=== PATIENT | male | born 1955 | race Caucasian/White ===

== ENCOUNTER 2016-09-29 10:29 | Day surgery (SDC) | payer OTHER, MEDICARE ==
[2016-09-28 10:52] VITALS: BMI 26.6
[2016-09-29] MEDS ORDERED: ROCURONIUM BROMIDE 50 MG/5 ML VIAL ONE (14:18)
[2016-09-29] MEDS ORDERED: ceFAZolin SODIUM 1 GM VIAL ONE (15:30)
[2016-09-29] MEDS ORDERED: ceFAZolin SODIUM 1 GM VIAL IVPB ONE (15:32)
[2016-09-29] MEDS ORDERED: NEOSTIGMINE METHYLSULFATE 0.5 MG/ML - 10 ML MDV ONE (16:11)
[2016-09-29] MEDS ORDERED: GLYCOPYRROLATE 0.2 MG/1 ML VIAL ONE (16:12)
[2016-09-29] MEDS ORDERED: BUPIVACAINE HCL/PF 0.5% (5MG/ML) 10 ML VIAL IJ ONE (16:18)
--- NOTE | 2016-09-29 16:41 | OP ---
Operative Note - Note: Operative Date: 09/29/16 Pre-Operative Diagnosis: Renal failure Operation: Laparoscopy, placement of peritoneal dialysis catheter, omentopexy Findings: Thick omentum in pelvis, no significant adhesions. Implants: [place] neck curled tenckhoff catheter Post-Operative Diagnosis: Same as Pre-op Surgeon: Jerad Casanova Chef'S Assistant: Sally Richardson Anesthesiologist/SENIOR SQL DBA: Lety August Anesthesia: General Operative Report Dictated: Yes
[2016-09-29] MEDS ORDERED: ACETAMINOPHEN 325 MG TABLET (FP) PO PRN (16:54)
[2016-09-29] MEDS ORDERED: oxyCODONE HCL 5 MG TABLET PO PRN (16:54)
--- NOTE | 2016-09-29 16:57 | HP ---
Satellite H - Chief Complaint History of Present Illness: 61 year old male with renal failure planning to start peritoneal dialysis. History Source: Patient Limitations to Obtaining History: No Limitations - Past Medical History Allergies/Adverse Reactions: Allergies Allergy/AdvReac Type Severity Reaction Status Date / Time No Known Allergies Allergy Verified 09/29/16 11:10 Cardiovascular: Yes: HTN - Current Medications Current Medications: Home Medications Medication Instructions Recorded Aspirin [ASA -] 81 mg PO DAILY 09/28/16 Calcitriol [Rocaltrol -] 0.25 mcg PO DAILY 09/28/16 Calcium Acetate 667 mg PO TID 09/28/16 Ergocalciferol (Vitamin D2) 1,000 unit PO DAILY 09/28/16 [Vitamin D2] Hydroxyzine HCl [Atarax -] 25 mg PO TID PRN 09/28/16 Losartan Potassium 100 mg PO DAILY 09/28/16 Metoprolol Tartrate [Lopressor] 100 mg PO HS 09/29/16 Satellite Physical Exam - Physical Examination Vital Signs: Vital Signs Period Temp Pulse Resp BP Sys/Juan Pulse Ox Last 24 Hr 98.3 F 61 16 155/88 98 General Appearance: Well Nourished, Alert & Oriented x3 ENT: Clear Lung: Clear to auscultation Heart: Regular rate & rhythm Abdomen: Soft, No tenderness Extremities: No edema Satellite Impression/Plan - Impression/Plan Impression: Renal failure Operative Procedure: Laparoscopy, placement of peritoneal dialysis catheter Date to be Performed: 09/29/16
[2016-09-29] MEDS ORDERED: ONDANSETRON 4 MG/2 ML VIAL IVPUSH PRN (17:14)
[2016-09-29] MEDS ORDERED: BENZOCAINE/MENTH/CETYLPYRD CL 1 EACH LOZENGE MM PRN (17:14)
[2016-09-29] MEDS ORDERED: SODIUM CHLORIDE 1,000 ML IV SCH (17:15)
[2016-09-29 17:42] VITALS: TEMP 97.7
[2016-09-29 18:31] VITALS: BP 141/78; PULSE 67
--- NOTE | 2016-09-30 02:46 | OP ---
DATE OF OPERATION: 09/29/2016 SURGEON: Jerad Casanova MD FLAME PLANER: MARY LOU Giron PROCEDURE: Laparoscopy with placement of peritoneal dialysis catheter and omentopexy. PREOPERATIVE DIAGNOSIS: Renal failure. POSTOPERATIVE DIAGNOSIS: Renal failure. ANESTHESIA: General. ANESTHESIOLOGIST: Lety August CRNA OPERATIVE FINDINGS: There was abundant, thick omentum extending into the deep pelvis. Otherwise, there were no abnormal adhesions or findings within the peritoneal cavity. OPERATIVE PROCEDURE: Following routine patient identification, general anesthesia was induced. The abdomen was prepped with ChloraPrep. Then, 0.5% Marcaine was infiltrated in the skin about the umbilicus and a small transverse incision was made. Using an optical port, the peritoneal cavity was accessed under direct visualization. A 5-mm laparoscope was inserted and abdominal exploration was carried out. The patient was placed in Trendelenburg position. A second 5-mm port was placed into the left abdominal wall. A grasper was used to move the omentum up towards the liver. A 2-0 Prolene on Kade needle was advanced through the right upper quadrant abdominal wall and grasped with a needle tovar. It was passed through the omentum and then pulled back out through the same abdominal wall site using a suture passer. The pneumoperitoneum was lowered to 10 mm of pressure and the suture was tied to fix the omentum into the right upper quadrant. A skin incision was then made to the left of the umbilicus and an 8-mm bladeless trocar was advanced to the underside of the parietal peritoneum. The trocar was then directed inferiorly towards the pubis and entered the peritoneal cavity just above the true pelvis. A curled [place]neck Tenckhoff catheter was then straightened with a wire and passed through the port and deployed into the pelvis. The port was removed. The inner cuff was left just under the peritoneum at the fascial opening. The other end of the tubing was attached to a curved tunneler, which was passed in the subcutaneous plane to exit in the right lower quadrant abdominal wall. Care was taken not to twist the catheter. The lower lock adapter was placed on the end of the catheter and then 1 L of saline was run into the peritoneal cavity. This took approximately 3 minutes. The IV bag was dropped to the floor and the catheter drained well. It was capped, leaving approximately 300 mL of fluid within the peritoneal cavity. All ports were removed. The wounds were closed with interrupted sutures of 3-0 Vicryl in the subcutaneous tissues and subcuticular suture of 4-0 Biosyn on the skin. Sterile dressings were applied with Dermabond glue. The catheter was dressed with a Bio Patch and Bio-occlusive dressing and then the tubing was covered with an abdominal pad, which was taped to the skin. The patient was then extubated and taken to the recovery room in stable condition. JERAD CASANOVA M.D. ROZINA/[id number]
--- NOTE | 2016-09-30 15:52 | SURG ---
Surgery Information Services Vice President Note Information Services Vice President: Sally Richardson PA-C Date of Service: 09/29/16 Diagnosis: Renal failure Procedure: Laparoscopy, placement of peritoneal dialysis catheter, omentopexy I was present for the entirety of the operative procedure. For further detail, please refer to operative report. Visit type - Case Type Case Type: Scheduled Admission - Emergency Emergency Visit: No - New patient This patient is new to me today: Yes Date on this admission: 09/30/16 - Critical Care Critical Care patient: No
== END 2016-09-29 18:31 | disposition home or self-care (01) ==
LOC: JASU-SURG 10:29
PROVIDERS: ATTEND Surgery
PROC: 0WHG43Z Insertion of Infusion Device into Peritoneal Cavity, Percutaneous Endoscopic Approach (ICD-10-PCS; principal; 2016-09-29 11:45)
DX: I12.0 Hypertensive chronic kidney disease with stage 5 chronic kidney disease or end stage renal disease (principal)
CPT/HCPCS: 36415; 84132; 94760